=== PATIENT | female | born 1955 | race Hispanic/Latino ===

== ENCOUNTER 2018-11-28 14:51 | Emergency (ER) | payer MEDICAID ==
--- NOTE | 2018-11-28 16:08 | Emergency Department Report ---
Eye Injury/Foreign Body - HPI Duration: 1 week Eye Location: Left Severity: Mild Eye Symptoms: Eye Pain: Yes (left), Blurred Vision: Yes (left), Eye Redness: Yes (left), Grinding/Hammering Metal: No, Used Eye Protection: No, Contact Lens Use: No, Recalls Injury: No, Photophobia: Yes (left) Other History: This is a 63-year-old female who presents with redness and swelling to left eye for one week. Patient reports change in irritation along with redness and swelling. States she is applying compresses with no improvement of symptoms. She also complains of some blurriness and photophobia sensitivity to light. She also reports crusting upon awakening. Denies grinding sensation. ED Review of Systems ROS: Stated complaint: OBJECT FELL IN (L) EYE Other details as noted in HPI Constitutional: denies: chills, fever Eyes: eye pain (left), vision change (left). denies: eye discharge ENT: denies: ear pain, throat pain Respiratory: denies: cough, shortness of breath, wheezing Cardiovascular: denies: chest pain, palpitations Gastrointestinal: denies: abdominal pain, nausea, diarrhea Skin: denies: rash, lesions Neurological: denies: headache, weakness, paresthesias Psychiatric: denies: anxiety, depression ED Past Medical Hx - Past Medical History Previous Medical History?: Yes Hx Hypertension: Yes Hx CVA: Yes Hx Congestive Heart Failure: No Hx Diabetes: Yes Hx Deep Vein Thrombosis: Yes (arms, lungs, legs) Hx Pulmonary Embolism: Yes Hx Asthma: No Hx COPD: No Hx HIV: No Additional medical history: Protein C deficiency. DVTs - Surgical History Past Surgical History?: Yes Hx Cholecystectomy: Yes Hx Appendectomy: Yes Additional Surgical History: tonsillectomy - Social History Smoking Status: Current Every Day Smoker Substance Use Type: None - Medications Home Medications: Home Medications Medication Instructions Recorded Confirmed Last Taken Type Lisinopril [Zestril TAB] 10 mg PO QDAY #30 tablet 10/18/15 11/15/15 Unknown Rx Pantoprazole [Protonix TAB] 40 mg PO BID #60 tablet 12/01/15 Unknown Rx oxyCODONE /ACETAMINOPHEN [Percocet 1 tab PO Q6HR PRN #20 tablet 12/01/15 Unknown Rx 5/325] Azithromycin(Nf)1% Ophth Soln 1 drops OS QDAY #1 bottle 11/28/18 Unknown Rx [Azasite 1% Ophth Soln] Eye Injury Exam - Exam General: Vital signs noted. No distress. Alert and acting appropriately. - Visual Acuity Left Vision Acuity Degree: 20/200 Eye Exam: Left Injection, Left Mucous Discharge, Left Fluorescein Uptake ( negative clue cells or signs of abrasion), Left Photophobia, Both EOMI, Neither Chemosis, Neither Abnormal Pupil, Neither Eye Foreign Body, Neither Lid Foreign Body, Neither Purulent Discharge, Neither Fluorescein Uptake (slit lamp), Neither Cell/Flare (slit lamp), Neither Corneal Edema Bilateral Vision Acuity Degree: 20/200 Right Vision Acuity Degree: 20/25 ED Course Vital Signs 11/28/18 14:58 Temperature 97.7 F Pulse Rate 92 H Respiratory 18 Rate Blood Pressure 147/81 O2 Sat by Pulse 94 Oximetry ED Medical Decision Making - Medical Decision Making This is a 63-year-old female presents with left eye injection, photophobia, and discharge 1 week. Past medical history of glaucoma, diabetes, hypertension, DVT, pulmonary embolism, and protein C deficiency. Patient is stable and was examined by me and Dr. Gordon. Vitals normal. Visual acuity 20/200 on left. Left eye examined by mathis lamp and tonometry. The pressure on the left was 16. There are no signs of clue cells or abrasion on exam. A repeat visual acuity was performed right 20/25 -2, left 20/30 -2. Physical assessment susceptible of conjunctivitis of left. Start azithromycin 1% gtts, 1 drop into the affected eye(s) twice for one day, then once daily for 4 days. Discussed plan with mother and she agreed with plan. Discharged home in stable condition. Follow up with PCP in 24-72 hours. - Differential Diagnosis Uveitis, corneal abrasion Critical care attestation.: If time is entered above; I have spent that time in minutes in the direct care of this critically ill patient, excluding procedure time. ED Disposition Clinical Impression: Acute left eye pain Conjunctivitis Qualifiers: Conjunctivitis type: acute Acute conjunctivitis type: bacterial Laterality: left Qualified Code(s): H10.32 - Unspecified acute conjunctivitis, left eye Disposition: TO HOME OR SELFCARE Is pt being admited?: No Does the pt Need Aspirin: No Condition: Stable Instructions: Conjunctivitis (ED) Additional Instructions: Pinkeye is very contagious so please wash hands frequently. Don't share any towels or bedding to prevent spread of infection. Use cool compress to each eye to decrease swelling. Avoid rubbing or touching eyes, because rubbing eyes can cause worsening symptoms. Take medication as prescribed. Follow-up with an salesperson [employer] in 24 hours as discussed on this visit. I have provided salesperson [employer] who can follow up with below and referral section. Return to ER if swelling don't improve or difficulty breathing after 2 days of medication. Prescriptions: Azithromycin(Nf)1% Ophth Soln [Azasite 1% Ophth Soln] 1 drops OS QDAY #1 bottle Referrals: [facility] MD MARY [Primary Care Provider] - 3-5 Days DOLORES SONG MD [Staff Physician] - 3-5 Days [facility] [Provider Group] - 3-5 Days [facility] [Provider Group] - 3-5 Days Time of Disposition: 17:21
[2018-11-28] MEDS ORDERED: FUL-GLO OP ONE (16:19)
[2018-11-28] MEDS ORDERED: TETRACAINE 0.5% OU ONE (16:20)
[2018-11-28 17:37] VITALS: BP 162/86
== END 2018-11-28 17:38 | disposition home or self-care (01) ==
LOC: ED 14:51
DX: H10.9 Unspecified conjunctivitis (principal); I10 Essential (primary) hypertension; E11.9 Type 2 diabetes mellitus without complications; Z86.73 Personal history of transient ischemic attack (TIA), and cerebral infarction without residual deficits; F17.200 Nicotine dependence, unspecified, uncomplicated; Z86.718 Personal history of other venous thrombosis and embolism; Z86.711 Personal history of pulmonary embolism; Z90.89 Acquired absence of other organs; Z90.49 Acquired absence of other specified parts of digestive tract; Z88.1 Allergy status to other antibiotic agents